=== PATIENT | male | born 1980 | race Caucasian/White ===

== ENCOUNTER 2019-03-11 21:10 | Emergency (ER) | payer OTHER ==
[~2019-03-11] VITALS: Ht 180.3 cm; Wt 104.3 kg
[2019-03-11] MEDS ORDERED: TOBRAMYCIN SULFA5 M1 OTIC (22:02)
[2019-03-11 22:24] VITALS: BP 122/64
== END 2019-03-11 22:24 | disposition home or self-care (01) ==
LOC: M.ERS 21:10
DX: S05.02XA Injury of conjunctiva and corneal abrasion without foreign body, left eye, initial encounter (principal); W45.8XXA Other foreign body or object entering through skin, initial encounter; Y92.89 Other specified places as the place of occurrence of the external cause; Y93.89 Activity, other specified; Y99.8 Other external cause status